=== PATIENT | female | born 1960 | race Caucasian/White ===

== ENCOUNTER 2016-12-24 20:06 | Emergency (ER) | payer BC ==
[~2016-12-24] VITALS: Ht 165.1 cm; Wt 69.5 kg
[~2016-12-24 20:06] MED LIST: ADVI200C9 PO; CLAR10TA7 PO
[2016-12-24 20:16] VITALS: BP 118/72; PULSE 88; RESP 16; TEMP 98.4; O2SAT 95
[2016-12-24] MEDS ORDERED: SODIUM CHLORIDE 0.9% FLUSH 10 ML FLUSH IVF PRN (21:15)
[2016-12-24] MEDS ORDERED: methylPREDNISolone SOD SUCC 125 MG/2 ML VIAL IVP ONE (21:15)
[2016-12-24] MEDS ORDERED: PANT40TA3 PO (21:17)
[2016-12-24] MEDS ORDERED: PROZ20CA11 PO (21:17)
[2016-12-24] MEDS: RESP: ALBUTEROL 2.5 MG/IPRATROPIUM 0.5 MG NEB (SCH) INH ×3 (21:27→21:42)
[2016-12-24 21:40] LABS: AUTOMATED NEUTROPHIL # 8.9 TH/MM3 (1.8-7.7); BASOPHIL # 0.1 TH/MM3 (0-0.2); BASOPHIL % 1.1 % (0.0-2.0); EOSINOPHIL # 0.8 TH/MM3 (0-0.4); EOSINOPHIL % 6.2 % (0.0-4.0); HEMATOCRIT 39.1 % (35.0-46.0); LYMPH % 16.8 % (9.0-44.0); LYMPHOCYTE # 2.2 TH/MM3 (1.0-4.8); MEAN CELL VOLUME 91.7 FL (80.0-100.0); MEAN CORPUSCULAR HEMOGLOBIN 30.1 PG (27.0-34.0); MEAN CORPUSCULAR HGB CONC 32.8 % (32.0-36.0); NEUT % 68.9 % (16.0-70.0); PLATELET COUNT 191 TH/MM3 (150-450); RED BLOOD COUNT 4.26 MIL/MM3 (4.00-5.30); RED CELL DISTRIBUTION WIDTH 13.4 % (11.6-17.2); WHITE BLOOD COUNT 12.9 TH/MM3 (4.0-11.0)
[2016-12-24 21:44] LABS: POTASSIUM 3.1 MEQ/L (3.5-5.1)
[2016-12-24 21:48] LABS: BICARBONATE 27.8 MEQ/L (21.0-32.0)
[2016-12-24 21:53] LABS: HEMO FLAGS AUTO DIFF
--- NOTE | 2016-12-24 22:03 | RADHPO ---
EXAM DATE/TIME: 12/24/2016 21:48 [place] COMPARISON: No previous studies available for comparison. INDICATIONS : Patient is short of breath and had chest tightness for a week. MEDICAL HISTORY : None. SURGICAL HISTORY : None. ENCOUNTER: Initial ACUITY: 1 week PAIN SCORE: 0/10 LOCATION: Bilateral chest FINDINGS: A single view of the chest demonstrates the lungs to be symmetrically aerated without evidence of mas s, infiltrate or effusion. The cardiomediastinal contours are unremarkable. Osseous structures are intact. CONCLUSION: No acute disease. Sergio Mina MD on December 24, 2016 at 22:01 Board Certified Radiologist. This report was verified electronically.
[2016-12-24 22:11] VITALS: BP 114/60; PULSE 88; RESP 16; O2SAT 97
[2016-12-24 22:24] LABS: SCAN/DIFF AUTO DIFF CONFIRMED
[2016-12-24] MEDS ORDERED: VENTAER INH (22:32)
[2016-12-24] MEDS ORDERED: PRED20 PO (22:32)
--- NOTE | 2016-12-24 22:33 | PD ---
HPI . Cough Chief Complaint: Respiratory Symptoms Time Seen by Provider: 21:03 Travel History International Travel<30 days: No Contact w/Intl Traveler<30days: No Traveled to known affect area: No History of Present Illness HPI Patient presents with a three-day history of cough. It has occasionally been productive of white or blood-tinged phlegm. She denies any fever. She states that her cough is exacerbated by exertion and by laying flat. The cough is improved by a cold environment. Patient denies any history of asthma/COPD, tension or coronary artery disease. PFSH Past Medical History Depression: Yes Diminished Hearing: No GERD: Yes Respiratory: Yes (BRONCHITIS, CHRONIC SINUSITIS) Tetanus Vaccination: < 5 Years Influenza Vaccination: Yes ?: Not Menopausal: Yes : 1 Para: 1 Past Surgical History Tonsillectomy: Yes Other Surgery: Yes (sinus surgeries x two) Social History Alcohol Use: No Tobacco Use: No Substance Use: No Allergies-Medications (Allergen,Severity, Reaction): Coded Allergies: Penicillin (Verified Allergy, Severe, ANAPHALACSIS, 12/24/16) Cephalosporins (Verified Allergy, Intermediate, HIVES, 12/24/16) Sulfa (Verified Allergy, Intermediate, HIVES, 12/24/16) Reported Meds & Prescriptions Reported Meds & Active Scripts Active Reported Prozac (Fluoxetine HCl) 20 Mg Cap 20 Mg PO DAILY Pantoprazole (Pantoprazole Sodium) 40 Mg Tab 40 Mg PO DAILY Review of Systems Except as stated in HPI: all other systems reviewed are Neg General / Constitutional: No: Fever, Chills Cardiovascular: No: Chest Pain or Discomfort Respiratory: Positive: Cough, Shortness of Breath Physical Exam Narrative GENERAL: Patient is awake and alert and in no acute distress. SKIN: Warm and dry. HEAD: Atraumatic. Normocephalic. EYES: Pupils equal and round. Extraocular movements are intact. ENT: No nasal bleeding or discharge. Mucous membranes pink and moist. NECK: Trachea midline. Neck is supple. CARDIOVASCULAR: Regular rate and rhythm. Heart sounds are normal. RESPIRATORY: No accessory muscle use. Lungs are clear with good air movement throughout. She does have a persistent, asthmatic sounding cough. GASTROINTESTINAL: Abdomen soft, non-tender, nondistended. MUSCULOSKELETAL: No obvious deformities. No edema. NEUROLOGICAL: Awake and alert. No obvious cranial nerve deficits. Motor grossly within normal limits. Normal speech. PSYCHIATRIC: Appropriate mood and affect; insight and judgment normal. Data Data Last Documented VS Vital Signs Date Time Temp Pulse Resp B/P Pulse Ox O2 Delivery O2 Flow Rate FiO2 12/24/16 22:11 88 16 114/60 97 Room Air 12/24/16 20:16 98.4 Orders Complete Blood Count With Diff (12/24/16 21:03) Basic Metabolic Panel (Bmp) (12/24/16 21:03) B-Type Natriuretic Peptide (12/24/16 21:03) Iv Access Insert/Monitor (12/24/16 21:03) Chest, Single Ap (12/24/16 21:03) Sodium Chloride 0.9% Flush (Ns Flush) (12/24/16 21:15) Methylprednisolone So Succ Inj (Solumedr (12/24/16 21:15) Albuterol-Ipratropium Neb (Duoneb Neb) (12/24/16 21:15) Labs Laboratory Tests Test 12/24/16 21:15 White Blood Count 12.9 TH/MM3 Red Blood Count 4.26 MIL/MM3 Hemoglobin 12.8 GM/DL Hematocrit 39.1 % Mean Corpuscular Volume 91.7 FL Mean Corpuscular Hemoglobin 30.1 PG Mean Corpuscular Hemoglobin 32.8 % Concent Red Cell Distribution Width 13.4 % Platelet Count 191 TH/MM3 Mean Platelet Volume 9.7 FL Neutrophils (%) (Auto) 68.9 % Lymphocytes (%) (Auto) 16.8 % Monocytes (%) (Auto) 7.0 % Eosinophils (%) (Auto) 6.2 % Basophils (%) (Auto) 1.1 % Neutrophils # (Auto) 8.9 TH/MM3 Lymphocytes # (Auto) 2.2 TH/MM3 Monocytes # (Auto) 0.9 TH/MM3 Eosinophils # (Auto) 0.8 TH/MM3 Basophils # (Auto) 0.1 TH/MM3 CBC Comment AUTO DIFF Differential Comment AUTO DIFF CONFIRMED Sodium Level 144 MEQ/L Potassium Level 3.1 MEQ/L Chloride Level 109 MEQ/L Carbon Dioxide Level 27.8 MEQ/L Anion Gap 7 MEQ/L Blood Urea Nitrogen 10 MG/DL Creatinine 0.72 MG/DL Estimat Glomerular Filtration 84 ML/MIN Rate Random Glucose 92 MG/DL Calcium Level 8.4 MG/DL B-Type Natriuretic Peptide 11 PG/ML MDM Medical Decision Making Medical Screen Exam Complete: Yes Emergency Medical Condition: Yes Differential Diagnosis Differential diagnosis includes but is not limited to viral respiratory illness , bronchitis, pneumonia, allergies, CHF, asthma/COPD. Narrative Course Patient presents with a cough last 3 days.CBC & BMP Diagram 12/24/16 21:15 BNP is normal. Last Impressions Chest X-Ray 12/24/16 2103 Signed Impressions: Service Date/Time: December 21:48 - CONCLUSION: No acute disease. Sergio Mina MD Chest x-ray was independently viewed by me. Diagnosis Primary Impression: Cough Additional Impression: Bronchospasm Patient Instructions: Bronchospasm (DC), General Instructions Med/Other Pt SpecificInfo: Prescription(s) given Scripts Prednisone 20 Mg Tab60 Mg PO DAILY 5 Days Ref 0 40 MG twice a day x 3 days, then 20 MG daily x 3 days, then 10 MG daily x 3 days Prov:Christina Farmer MD 12/24/16 Albuterol 18 GM Inh (Ventolin Hfa 18 GM Inh)90 Mcg/Act Aer2 Puff INH Q4H PRN ( SHORTNESS OF BREATH) #1 INHALER Ref 0 Prov:Christina Farmer MD 12/24/16 Disposition: 01 DISCHARGE HOME Condition: Stable Christina Farmer MD Dec 24, 2016 22:33
[2016-12-24] MEDS ORDERED: POTASSIUM CHLORIDE 20 MEQ CONTROLLED RELEASE TAB PO ONE (22:45)
== END 2016-12-24 22:52 | disposition home or self-care (01) ==
LOC: PHED 20:06
DX: R05 Cough (principal); J98.01 Acute bronchospasm
CPT/HCPCS: 71010; 80048; 83880; 85025; 94640; 94664; 96374; 99285; J2930